=== PATIENT | male | born 1945 | race Caucasian/White ===

== ENCOUNTER 2016-07-28 08:01 | Day surgery (SDC) | payer OTHER, MEDICARE ==
[~2016-07-28] VITALS: Ht 175.3 cm; Wt 91.6 kg
[~2016-07-28 08:01] MED LIST: AMBIEN10 MG PO; AMLODIPINE BESYL5 MG PO; AREDS 2 PO; ASPIRIN81 M2 PO; BENICAR40 MG PO; CELEXA20 MG PO; CLONIDINE HCL0.1 MG PO; CORDARONE200 MG PO; COUMADIN6 MG PO; Cordarone, Pacerone PO; Coumadin,Jantoven PO; DIAZEPAM5 MG PO; DIOVAN HCT 11 TABLET PO; FENOFIBRATE PO; FLAGYL500 MG PO; FOCALIN XR20 MG PO; FUROSEMIDE20 MG PO; FUROSEMIDE40 MG PO; Flora-Q,Risaquad PO; LASIX40 MG PO; LEVOTHROID100 MCG PO; LEVOTHROID25 MCG PO; LEVOTHYROXINE112 MCG PO; LOPRESSOR100 M1 PO; Levothroid,Synthroid PO; Lopressor PO; METOPROLOL TART50 MG PO; METRONIDAZOLE500 MG PO; NORVASC10 MG PO; PERCOCET 5/31 TABLET PO; POTASSIUM-9999 MG PO; PRAVASTATIN SOD40 MG PO; PRESERVISION T1 EACH PO; PREVACID30 MG PO; PROBIOTIC1 EAC1 PO; PROTONIX40 MG PO; Prevacid PO; Questran PO; TRAMADOL HCL50 MG PO; TYLENOL REGULA325 MG PO; VALIUM5 MG PO; VALSARTAN160 MG PO; Valium PO; Vancocin Oral Soluti PO; Vicodin,Norco 5/325 PO; ZOLPIDEM TARTRA10 MG PO; celeXA PO
[2016-07-28 08:36] VITALS: BP 129/72
[2016-07-28 12:11] VITALS: BP 111/65
[2016-07-28 12:38] VITALS: BP 130/73
== END 2016-07-28 12:45 | disposition home or self-care (01) ==
LOC: SDC 08:01
DX: H35.342 Macular cyst, hole, or pseudohole, left eye (principal); H35.372 Puckering of macula, left eye; H35.81 Retinal edema; I48.91 Unspecified atrial fibrillation; I10 Essential (primary) hypertension; E03.9 Hypothyroidism, unspecified; F32.9 Major depressive disorder, single episode, unspecified; E78.5 Hyperlipidemia, unspecified; E53.8 Deficiency of other specified B group vitamins; E55.9 Vitamin D deficiency, unspecified; F41.9 Anxiety disorder, unspecified; Z79.82 Long term (current) use of aspirin; Z87.891 Personal history of nicotine dependence; Z88.8 Allergy status to other drugs, medicaments and biological substances; Z80.0 Family history of malignant neoplasm of digestive organs
CPT/HCPCS: J0690; J0713; J2250; J2405; J3010; J3300